=== PATIENT | male | born 1975 | race Caucasian/White ===

== ENCOUNTER → 2017-05-11 09:40 | Outpatient (CLI) | payer BC, SELFPAY ==
--- NOTE | 2017-05-11 09:44 | RAD_ITS ---
STUDY: X-RAY - LUMBOSACRAL SPINE REASON FOR EXAM: Male, 41 years old. LOW BACK PAIN TECHNIQUE: 7 view(s) of the lumbosacral spine were obtained. COMPARISON: None FINDINGS: Normal lumbar lordosis. There is no substantial scoliosis. There is normal alignment of the vertebrae. There is multilevel endplate spondylosis of the lumbar vertebrae. Normal disc space heights. There are atherosclerotic vascular calcifications. Normal bilateral sacral ala, sacroiliac joints, and visualized sacrum. Normal visualized soft tissue structures. RAD/L/S Spine Comp/w Bending Views IMPRESSION: There is multilevel endplate spondylosis of the lumbar vertebrae. Electronically Signed: Dex Rodriguez MD at 17:01 EST , Service support ,
== END ==
PROVIDERS: Family Provider Family Medicine; PCP Family Medicine; Visit Provider Orthopaedic Surgery
DX: M54.5 Low back pain (principal)
CPT/HCPCS: 72114

== ENCOUNTER → 2017-12-16 17:51 | Outpatient (CLI) | payer BC, SELFPAY ==
[2017-12-16 18:17] LABS: Amphetamine Urine VISTA NEGATIVE (<1000 ng/mL); Barbiturate Urine VISTA NEGATIVE (< 200 ng/mL); Benzodiazepine Urine VISTA NEGATIVE (< 200 ng/mL); Cocaine Urine VISTA NEGATIVE (< 300 ng/mL); Ecstacy Urine VISTA NEGATIVE (< 500 ng/mL); Methadone Urine VISTA NEGATIVE (< 300 ng/mL); PCP Urine VISTA NEGATIVE (< 25 ng/mL); THC Urine VISTA NEGATIVE (< 50 ng/mL); Vista UDS pH Range 7
== END ==
PROVIDERS: Family Provider Family Medicine; PCP Family Medicine; Referring Provider Anesthesiology Pain Medicine; Visit Provider Anesthesiology Pain Medicine
DX: F11.20 Opioid dependence, uncomplicated (principal)
CPT/HCPCS: 80307

== ENCOUNTER → 2018-08-30 | Outpatient (CLI) | payer BC, SELFPAY ==
[2017-05-12 09:42] VITALS: BMI 32.8
--- NOTE | 2018-08-30 17:15 | RAD_ITS ---
STUDY: X-RAY - PELVIS AND RIGHT HIP REASON FOR EXAM: Male, 43 years old. Right hip pain, injury 7 years ago TECHNIQUE: 3 views of the pelvis and hip. COMPARISON: None. FINDINGS: There is a non-specific bowel gas pattern. There is a large amount of heterotopic bone superior to the right hip joint and inferior to the left hip joint. There is orthopedic hardware involving the right ilium, ischium, and inferior right pubic ramus. Normal bilateral superior and inferior pubic rami. There is sclerosis and irregularity of the inferior left pubic ramus. Normal bilateral ischial tuberosities. There are degenerative changes of the right hip joint. There is a linear lucency of the intertrochanteric region of the proximal right femur suspicious for fracture of indeterminate age. RAD/HIP, UNI W/ Pelvis 2-3 Views IMPRESSION: Orthopedic hardware of the right hemipelvis. Heterotopic bone superior to the right hip and inferior to the left hip. Linear lucency of the intertrochanteric region of the right hip suspicious for fracture of indeterminate age. If clinically indicated, CT of the pelvis would be helpful for further evaluation at this time. Electronically Signed: Bassem Reynoso MD at 23:43 EDT , Service support ,
--- NOTE | 2018-08-30 17:15 | RAD_ITS ---
STUDY: X-RAY - SACRUM/COCCYX REASON FOR EXAM: Male, 43 years old. Tailbone pain, injury 7 years ago TECHNIQUE: 3 view(s) of the sacrum and coccyx were obtained. COMPARISON: None. FINDINGS: Normal bilateral sacroiliac joints. Normal visualized sacral ala and fused sacral bodies. Normal sacrococcygeal junction with a normal angulation. Normal coccygeal segments. The presacral soft tissue structures are unremarkable. RAD/Sacrum-Coccyx min 2 Views IMPRESSION: Normal x-rays of the sacrum and coccyx. Electronically Signed: Bassem Reynoso MD at 23:44 EDT , Service support ,
== END | disposition home or self-care (01) ==
LOC: RAD 17:14
PROVIDERS: Family Provider Family Medicine; PCP Family Medicine; Referring Provider Anesthesiology Pain Medicine; Visit Provider Anesthesiology Pain Medicine
DX: M25.551 Pain in right hip (principal)
CPT/HCPCS: 72220; 73502

== ENCOUNTER → 2020-11-12 17:00 | Outpatient (CLI) | payer OTHER, SELFPAY ==
[2020-11-12 17:59] LABS: Amphetamine Urine VISTA NEGATIVE (<1000 ng/mL); Barbiturate Urine VISTA NEGATIVE (< 200 ng/mL); Benzodiazepine Urine VISTA NEGATIVE (< 200 ng/mL); Cocaine Urine VISTA NEGATIVE (< 300 ng/mL); Ecstacy Urine VISTA NEGATIVE (< 500 ng/mL); Methadone Urine VISTA NEGATIVE (< 300 ng/mL); PCP Urine VISTA NEGATIVE (< 25 ng/mL); THC Urine VISTA NEGATIVE (< 50 ng/mL); Vista UDS pH Range 5
== END ==
PROVIDERS: PCP Family Medicine; Referring Provider Anesthesiology Pain Medicine; Visit Provider Anesthesiology Pain Medicine
DX: F11.20 Opioid dependence, uncomplicated (principal)
CPT/HCPCS: 80307

== ENCOUNTER → 2022-03-03 | Outpatient (CLI) | payer OTHER, SELFPAY ==
--- NOTE | 2022-03-03 16:28 | MRI_ITS ---
EXAM: MR RIGHT UPPER EXTREMITY WITHOUT INTRAVENOUS CONTRAST, SHOULDER CLINICAL INDICATION: RIGHT shoulder and neck pain, painful with movement TECHNIQUE: Multiplanar and multisequence MR images of the right shoulder without intravenous contrast. This report was created using [employer] report [email or web address] technology. COMPARISON: None. FINDINGS: TENDONS: SUPRASPINATUS: Unremarkable. Intact. INFRASPINATUS: Unremarkable. Intact. SUBSCAPULARIS: Unremarkable. Intact. TERES MINOR: Unremarkable. Intact. BICEPS BRACHII, LONG HEAD: Unremarkable. The extra-articular biceps tendon is in the bicipital groove. The intra-articular biceps tendon is normal. LIGAMENTS: GLENOHUMERAL: Unremarkable. Intact. CORACOACROMIAL: Type I acromion with flat undersurface. No coracoacromial ligament thickening. No os acromiale. No subacromial enthesophyte. MUSCLES: Unremarkable. No rotator cuff muscle atrophy. FLUID: No significant glenohumeral joint effusion. No subacromial-subdeltoid space bursal fluid. CARTILAGE: Unremarkable. Articular cartilage intact. GLENOID LABRUM: Unremarkable. Intact, limited evaluation on non-arthrographic exam. BONES/JOINTS: Normal rotator interval. Moderate hypertrophic degenerative changes involving the acromioclavicular joint with mild mass effect on the underlying soft tissues. No fracture. No abnormal bone marrow signal. OTHER SOFT TISSUES: Unremarkable. No rotator interval edema. MRI/Upper Ext Joint Only(Routine) IMPRESSION: Moderate hypertrophic degenerative changes involving the acromioclavicular joint with mild mass effect on the underlying soft tissues. Electronically Signed: Nawaf Brewer MD at 22:14 EST ,
--- NOTE | 2022-03-03 16:28 | MRI_ITS ---
STUDY: MRI CERVICAL SPINE WITHOUT CONTRAST REASON FOR EXAM: Male, 46 years old. neck pain,rt shoulder pain TECHNIQUE: Standardized fat and water weighted pulse sequences were obtained in the sagittal and axial planes. COMPARISON: None FINDINGS: Normal foramen magnum and brainstem-cervical cord junction. Normal craniovertebral junction. Normal anterior atlantoaxial articulation. Normal odontoid process. Normal cervical lordosis. Normal vertebral bodies and posterior osseous elements. C2-3: Normal endplates. Normal disc height, signal and morphology. Normal central canal and intervertebral neural foramina. C3-4: There is left paracentral disc herniation impinging on the left C4 nerve root. Normal central canal and intervertebral neural foramina. C4-5: Normal endplates. Normal disc height, signal and morphology. Normal central canal and intervertebral neural foramina. C5-6: Large broad-based disc herniation impinging on the spinal cord. There is signal abnormality in the spinal cord suggesting myelomalacia. Severe stenosis of the central canal and intervertebral neural foramina. C6-7: Normal endplates. Normal disc height, signal and morphology. Normal central canal and intervertebral neural foramina. C7-T1: Normal endplates. Normal disc height, signal and morphology. Normal central canal and intervertebral neural foramina. There is signal abnormality in the spinal cord at C5-6 suggesting myelomalacia. Normal visualized soft tissue structures. MRI/Spine Cervical (Routine) IMPRESSION: C3-4: There is left paracentral disc herniation impinging on the left C4 nerve root. C5-6: There is signal abnormality in the spinal cord suggesting myelomalacia. Severe stenosis of the central canal and intervertebral neural foramina. Electronically Signed: Fox Newby MD at 3:59 EST ,
--- NOTE | 2022-03-03 16:35 | RAD_ITS ---
EXAM: XR ORBITS FOREIGN BODY CLINICAL INDICATION: HX METAL TO EYE,,,PRE MRI TECHNIQUE: Frontal view(s) of the orbits. This report was created using [employer] report generation technology. COMPARISON: None. FINDINGS: BONES/JOINTS: Unremarkable. No acute fracture. SINUSES: Unremarkable. No air-fluid levels. SOFT TISSUES: Unremarkable. No radiopaque foreign body. RAD/Orbits for Foreign Body IMPRESSION: Normal orbital x-rays. No radiopaque foreign body in either orbit. Electronically Signed: Lev Busch MD at 16:54 EST ,
== END | disposition home or self-care (01) ==
PROVIDERS: PCP Family Medicine; Visit Provider Orthopaedic Surgery
DX: Z01.818 Encounter for other preprocedural examination (principal); M19.011 Primary osteoarthritis, right shoulder; M54.12 Radiculopathy, cervical region; M50.30 Other cervical disc degeneration, unspecified cervical region
CPT/HCPCS: 70030; 72141; 73221

== ENCOUNTER → 2022-07-14 | Outpatient (CLI) | payer OTHER, SELFPAY ==
[2022-07-14 19:15] LABS: Amphetamine Urine VISTA NEGATIVE (<1000 ng/mL); Barbiturate Urine VISTA NEGATIVE (< 200 ng/mL); Benzodiazepine Urine VISTA NEGATIVE (< 200 ng/mL); Cocaine Urine VISTA NEGATIVE (< 300 ng/mL); Ecstacy Urine VISTA NEGATIVE (< 500 ng/mL); Methadone Urine VISTA NEGATIVE (< 300 ng/mL); PCP Urine VISTA NEGATIVE (< 25 ng/mL); THC Urine VISTA NEGATIVE (< 50 ng/mL); Vista UDS pH Range 5
== END | disposition home or self-care (01) ==
LOC: LAB 17:36
PROVIDERS: PCP Family Medicine; Referring Provider Anesthesiology Pain Medicine; Visit Provider Anesthesiology Pain Medicine
DX: F11.20 Opioid dependence, uncomplicated (principal)
CPT/HCPCS: 80307